=== PATIENT | female | born 1955 | race Caucasian/White ===

== ENCOUNTER 2016-09-27 06:59 | Day surgery (SDC) | payer BC ==
--- NOTE | ~2016-09-27 | EGD ---
EGD REPORT [facility] [address] [place]. [address] NAME: OPHELIA ESPINOZA : [birth year] STATUS : REG [facility]#: [id number] AGE: 61 ADM/REG DATE : 09/27/16 MR#: [id number] REPORT SERV DATE: 09/27/16 DICTATED BY: RAKESH ELLISON DATE: 09/27/16 REPORT STATUS : Draft TRANSCRIBED BY: [facility] DATE: 09/27/16 Endoscopy Center Patient Name: Ophelia Espinoza Date of : 1955 Attending MD: RAKESH ELLISON MD Procedure Date No Time: 09/27/2016 Procedure: Colonoscopy Indications: Screening for colorectal malignant neoplasm, This is the patient's first colonoscopy Referring MD: NBA BILLS Medicines: See the Anesthesia note for documentation of the administered medications Complications: No immediate complications. Procedure: Pre-Anesthesia Assessment: - ASA Grade Assessment: III - A patient with severe systemic disease. After I obtained informed consent, the scope was passed under direct vision. Throughout the procedure, the patient's blood pressure, pulse, and oxygen saturations were monitored continuously. The [facility] [id number] was introduced through the anus and advanced to the terminal ileum, with identification of the appendiceal orifice and IC valve. The colonoscopy was performed without difficulty. The patient tolerated the procedure well. The quality of the bowel preparation was adequate. Findings: The perianal and digital rectal examinations were normal. Internal hemorrhoids were found during retroflexion and were small. The terminal ileum appeared normal. Impression: - Internal hemorrhoids. - The examined portion of the ileum was normal. Recommendation: - Patient has a contact number available for emergencies. The signs and symptoms of potential delayed complications were discussed with the patient. Return to normal activities tomorrow. Written discharge instructions were provided to the patient. - Regular diet. - Continue present medications. - Repeat colonoscopy in 10 years for screening purposes. - Repeat colonoscopy in 10 years. IF develop symptoms like bleeding or diarrhea, or Family history of colon cancer or polyps before age 60, you could require sooner EGD REPORT [address] [place]. [address] NAME: OPHELIA ESPINOAZ : [birth year] STATUS : REG [facility]#: [id number] AGE: 61 ADM/REG DATE : 09/27/16 MR#: [id number] REPORT SERV DATE: 09/27/16 DICTATED BY: RAKESH ELLISON DATE: 09/27/16 REPORT STATUS : Draft TRANSCRIBED BY: [employer] DATE: 09/27/16 colonoscopy - Please register at [email or web address]. This will be the way for you to receive test results in future. Procedure Code(s): --- Professional --- 76760, Colonoscopy, flexible, proximal to splenic flexure; diagnostic, with or without collection of specimen(s) by brushing or washing, with or without colon decompression (separate procedure) Diagnosis Code(s): --- Professional --- K64.8, Other hemorrhoids Z12.11, Encounter for screening for malignant neoplasm of colon CPT copyright 2013 [employer]. All rights reserved. The codes documented in this report are preliminary and upon wildfire prevention specialist review may be revised to meet current compliance requirements. Rakesh Ellison MD RAKESH ELLISON MD 09/27/2016 9:23 AM This report has been signed electronically. Number of Addenda: 0 Note Initiated On: 09/27/2016 9:02 AM Scope Withdrawal Time 0 hours 9 minutes 35 seconds [address] [address]
[~2016-09-27 06:59] MED LIST: MINIVELLE1 EAC2 TOP; MOBIC15 MG PO; PRAV10 PO; PRILOSEC40 MG PO; VITAMIN D31000 UNIT PO; ZOL100 PO
== END 2016-09-27 23:59 | disposition home or self-care (01) ==
LOC: DMU 06:59
PROVIDERS: Internal Medicine Gastroenterology
PROC: 0DJD8ZZ Inspection of Lower Intestinal Tract, Via Natural or Artificial Opening Endoscopic (ICD-10-PCS; principal; 2016-09-27 08:30)
DX: Z12.11 Encounter for screening for malignant neoplasm of colon (principal); K64.8 Other hemorrhoids; I44.7 Left bundle-branch block, unspecified; E78.00 Pure hypercholesterolemia, unspecified; M19.90 Unspecified osteoarthritis, unspecified site; F41.9 Anxiety disorder, unspecified; K21.9 Gastro-esophageal reflux disease without esophagitis; Z79.899 Other long term (current) drug therapy; Z90.89 Acquired absence of other organs; Z98.890 Other specified postprocedural states
CPT/HCPCS: J2405